=== PATIENT | female | born 1960 | race Caucasian/White ===

== ENCOUNTER 2017-01-26 19:46 | Emergency (ER) | payer OTHER ==
[2017-01-26 20:18] VITALS: BP 112/64
--- NOTE | 2017-01-26 22:07 | RAD ---
Indication: Fall with head trauma. Comparison: No relevant prior exams available on the [facility] [place] for comparison. Technique: Noncontrast CT vertex of skull through foramen magnum. Report: The sulci, ventricles, and basal cisterns are normal for age. Fierro matter white matter differentiation is preserved without evidence for edema. No intra or extra axial hemorrhage is detected. Unremarkable orbital contents. Negative for calvarial or skull base fracture. Negative for scalp hematoma. The visualized paranasal sinuses and mastoid air spaces are clear. IMPRESSION: Negative unenhanced head CT. No evidence for traumatic brain injury or acute intracranial process.
[2017-01-26] MEDS: Nicotine Inhaler* 10 MG AMP INH ONE ×2 (22:09→22:14)
--- NOTE | 2017-01-26 22:10 | RAD ---
INDICATION: Neck pain post fall. Intoxicated. COMPARISON: No relevant prior exams available on the [facility] [place] [facility] for comparison. TECHNIQUE: Multidetector CT images foramen magnum to lung apices without contrast. Multiplanar reformation. REPORT: Normal vertebral alignment accounting for exam positioning without spondylolisthesis or subluxation at any level. Negative for cervical vertebral body or posterior element fracture. Negative for paravertebral hematoma. At C5-C6 there is mild disc space narrowing and vertebral endplate osteophytosis without suggestion of acquired spinal stenosis. IMPRESSION: No evidence for traumatic cervical spine injury.
--- NOTE | 2017-01-26 22:13 | RAD ---
INDICATION: Fall while intoxicated. Head and neck pain. COMPARISON: No relevant prior exams available on the [facility] [place] for comparison. TECHNIQUE: Multidetector CT base of the skull through mandible without contrast. Multiplanar reformation. REPORT: Artifact from dental amalgam. Negative for soft tissue hematoma. Unremarkable orbital contents. The orbital and maxillary sinus margins, zygomatic arches, lamina papyracea, base of the maxilla, pterygoid plates, and nasal bones are intact. The mandible is intact. Normal temporal mandibular joint alignment. Osteophytosis and flattening of the LEFT mandibular condyle with small chronic appearing osteochondral fragment at the LEFT temporomandibular joint. Negative for paranasal sinus fluid levels. Clear visualized mastoid air spaces. IMPRESSION: Negative for maxillofacial fracture.
--- NOTE | 2017-01-26 22:48 | ED ---
Head Injury - HPI Summary HPI Summary: Pt here w/ fall and hitting face against cement while leaving a restaurant tonight. Was trying to walk and light cigarette when he lost her balance/foot caught sidewalk and she fell forward. "Busted front teeth" on sidewalk - bleeding. Has a couple of fractured teeth. Denies LOC however pt appears intoxicated. Reports she was having dinner w/ her son who witnessed fall - he is not with her at this time. She is wondering if she broke her nose. Denies headache, change in vision, neck pain, vomiting, confusion. No anticoagulants. Has a few abrasions from fall over UE's and LE's but no briseyda restriction or pain. No other injuries to report. - History Of Current Complaint Chief Complaint: EDFacialInjury Stated Complaint: FALL/ETOH Time Seen by Provider: 01/26/17 20:18 Hx Obtained From: Patient Pain Intensity: 0 - Allergies/Home Medications Allergies/Adverse Reactions: Allergies Allergy/AdvReac Type Severity Reaction Status Date / Time Codeine Allergy Unknown Verified 01/28/16 12:00 Reaction Details Meperidine [From Demerol HCl] Allergy Unknown Verified 01/28/16 12:00 Reaction Details Morphine Allergy Unknown Verified 01/28/16 12:00 Reaction Details PMH/Surg Hx/FS Hx/Imm Hx Previously Healthy: Yes Endocrine/Hematology History: Denies: Hx Anticoagulant Therapy, Hx Blood Disorders, Hx Diabetes, Hx Thyroid Disease Cardiovascular History: Reports: Hx Hypertension - NO MEDS, CURRENT BP 154/88,, Other Cardiovascular Problems/Disorders - HTN, NO MEDS Denies: Hx Congestive Heart Failure Respiratory History: Reports: Hx Chronic Bronchitis, Hx Pneumonia Denies: Hx Asthma, Hx Chronic Obstructive Pulmonary Disease (COPD) GI History: Denies: Hx Ulcer History: Denies: Hx Renal Disease Musculoskeletal History: Reports: Hx Orthopedic Injury - broke back at 12 years of age Sensory History: Reports: Hx Contacts or Glasses - GLASSES Opthamlomology History: Reports: Hx Contacts or Glasses - GLASSES Psychiatric History: Reports: Hx Depression - HAS MED TO USE NEEDED, Hx Substance Abuse - ALCOHOLIC - Cancer History Hx Chemotherapy: No Hx Radiation Therapy: No - Surgical History Surgery Procedure, Year, and Place: [place] [facility] [place] [facility]. 1993 & 1999 c-sections [facility] Hx Anesthesia Reactions: No - Immunization History Immunizations Up to Date: Yes Infectious Disease History: No Infectious Disease History: Denies: Hx Clostridium Difficile, Hx Hepatitis, Hx Human Immunodeficiency Virus (HIV), Hx of Known/Suspected MRSA, Hx Shingles, Hx Tuberculosis, Hx Known/ Suspected VRE, Hx Known/Suspected VRSA, History Other Infectious Disease, Traveled Outside the [place] in Last 30 Days - Family History Known Family History: Positive: Hypertension - Social History Alcohol Use: Daily Alcohol Amount: ALCOHOLIC: TRYS TO REFRAIN OR DRINK OCCASSIONAL GLASS OF WINE Hx Substance Use: No Substance Use Type: Reports: None Hx Tobacco Use: Yes Smoking Status (MU): Current Every Day Smoker Type: Cigarettes Amount Used/How Often: 1PPD 40 YRS Have You Smoked in the Last Year: Yes Review of Systems Eyes: Negative Negative: Photophobia, Blurred Vision ENT: Other - see HPI Negative: Chest Pain Negative: Shortness Of Breath Gastrointestinal: Negative Positive: no symptoms reported Musculoskeletal: Other - see HPI Skin: Other - see HPI Neurological: Negative Negative: Headache, Weakness, Paresthesia, Numbness Psychological: Other - frustrated All Other Systems Reviewed And Are Negative: Yes Physical Exam Triage Information Reviewed: Yes Vital Signs On Initial Exam: Initial Vitals Temp Pulse Resp BP Pulse Ox 99.3 F 104 22 112/64 97 01/26/17 20:04 01/26/17 20:04 01/26/17 20:04 01/26/17 20:04 01/26/17 20:04 Vital Signs Reviewed: Yes Appearance: Positive: No Pain Distress, Well-Nourished - pt appears intoxicated - slurred speech, poor core strength control at times Skin: Positive: Warm - blood on face and dress Eyes: Positive: Normal, EOMI, MIRA, Conjunctiva Clear. Negative: Conjunctiva Inflammed ENT: Positive: Hearing grossly normal, Nasal drainage - dried blood, TMs normal - no hmeotympanum, no step off, no racoon signs, no battlesigns. Negative: Trismus, Muffled/hoarse voice Dental: Positive: Dental Fracture @ Neck: Positive: Supple, Nontender Respiratory/Lung Sounds: Positive: Clear to Auscultation, Breath Sounds Present - chest is NTTP. Negative: Stridor, Tracheal Deviation Cardiovascular: Positive: Normal, RRR, Pulses are Symmetrical in both Upper and Lower Extremities Abdomen Description: Positive: Nontender, Soft Bowel Sounds: Positive: Present Musculoskeletal: Positive: Normal, Strength/ROM Intact Neurological: Positive: Sensory/Motor Intact - although motor delayed at times, Alert, Oriented to Person Place, Time, CN Intact II-III, Reflexes Intact Psychiatric: Positive: Other - agitated Diagnostics - Vital Signs Vital Signs Temp Pulse Resp BP Pulse Ox 01/26/17 20:34 99.3 F 104 22 112/64 97 01/26/17 20:04 99.3 F 104 22 112/64 97 - Laboratory Lab Statement: Any lab studies that have been ordered have been reviewed, and results considered in the medical decision making process. Head Injury Course/Dx Course Of Treatment: Pt here w/ fall earlier tonight - appears intoxicated. Dried blood on face and in mouth. Denies sx of pain or neuro deficits. Imaging neg, Son to belt picker pt. Her neuro functions appears to have improved some prior to d/c (appears more alert, movments are more coordinated). Narcotic pain medications were not provided as pt appears intoxicated, has noted h/o alcoholism and denies intoxication tonight. Gave supportive care instructions for injuries - she denies pain during exam and just wanted to know if her nose was fx'd (it was not). Pt agrees w plan. - Diagnoses Provider Diagnoses: Head injury, Fracture, tooth, Multiple abrasions Discharge - Discharge Plan Condition: Stable Disposition: HOME Patient Education Materials: Head Injury (ED), Acute Dental Trauma (ED) Referrals: Shamar Nunez MD [Primary Care Provider] - Additional Instructions: Rest and ice areas of pain/soreness You may take acetaminophen alternating with ibuprofen for pain - take with food Follow-up with PCP next week for recheck of injuries *if you develop headache, visual change, vomiting, syncope, return to ED You appear to have dental fracture(s). These may be addressed with your dentist. Rinse with saline oral rinses multiple times a day to help heal wounds. Keep tooth and bring with you to dentist.
== END 2017-01-26 23:45 | disposition home or self-care (01) ==
LOC: ED 19:46
DX: S09.90XA Unspecified injury of head, initial encounter (principal); S02.5XXA Fracture of tooth (traumatic), initial encounter for closed fracture; S00.91XA Abrasion of unspecified part of head, initial encounter; W19.XXXA Unspecified fall, initial encounter; Y93.9 Activity, unspecified; Y92.9 Unspecified place or not applicable; Y99.9 Unspecified external cause status; F17.210 Nicotine dependence, cigarettes, uncomplicated
CPT/HCPCS: 70450; 70486; 72125; 99282; A9270-GY

== ENCOUNTER 2017-03-10 19:11 | Inpatient (IN) | payer OTHER ==
[2017-03-10 19:58] LABS: Hematocrit 45 % (35-47); Hemoglobin 14.7 g/dl (12.0-16.0); Mean Corpuscular HGB Conc 33 g/dl (31-36); Mean Corpuscular Hemoglobin 33 pg (27-31); Mean Corpuscular Volume 101 fL (80-97); Mean Platelet Volume 8 um3 (7.4-10.4); Red Blood Count 4.41 10^6/ul (4.0-5.4); Red Cell Distribution Width 17 % (10.5-15); White Blood Count 4.5 10^3/ul (3.5-10.8)
[2017-03-10 20:13] LABS: ALT 10 U/L (7-52); AST 20 U/L (13-39); Albumin 4.6 g/dL (3.2-5.2); Alkaline Phosphatase 60 U/L (34-104); Anion Gap 7 mmol/L (2-11); BUN/Creatinine Ratio 8.8 (8-20); Blood Urea Nitrogen 5 mg/dL (6-24); CO2 Carbon Dioxide 33 mmol/L (22-32); Calcium 8.7 mg/dL (8.6-10.3); Chloride 102 mmol/L (101-111); EGFR African American 140.1 (>60); EGFR Non-African American 108.9 (>60); Globulin 2.6 g/dL (2-4); Glucose 94 mg/dL (70-100); Potassium 3.9 mmol/L (3.5-5.0); Sodium 142 mmol/L (133-145); Total Protein 7.2 g/dL (6.4-8.9)
[2017-03-10 20:38] LABS: Acetaminophen < 15 mcg/mL; Alcohol 275 mg/dL (<10); Salicylate < 2.50 mg/dL (<30)
--- NOTE | 2017-03-10 20:42 | ED ---
Madison Paulino Rebecca, scribed for Luz Marina Reno MD on 03/10/17 at 1931 . Psychiatric Complaint - HPI Summary HPI Summary: Pt is a 57 y/o F BIB police who presents to ED after her mother called police due to depression with SIs. Pt reports she told her mother that she was "finished, because I am and my kids don't live with my anymore and nobody seems to care about me" and this prompted her to call the police. Additionally notes an episode of dizziness 2 weeks ago. As a result of the dizziness she has not taken her Cephalexin in 4 days and has decreased her Trazadone dosage. Sx aggravated and alleviated by nothing. When asked, pt denies PMHx depression but she is documented to have a Hx of depression. - History Of Current Complaint Chief Complaint: EDMentalHealth Time Seen by Provider: 03/10/17 19:22 Hx Obtained From: Patient Onset/Duration: Still Present Character: Depressed Aggravating Factor(s): Nothing Alleviating Factor(s): Nothing Has Suicidal: Reports: Thoughts - Allergies/Home Medications Allergies/Adverse Reactions: Allergies Allergy/AdvReac Type Severity Reaction Status Date / Time Codeine Allergy Unknown Verified 03/10/17 19:16 Reaction Details Meperidine [From Demerol HCl] Allergy Unknown Verified 03/10/17 19:16 Reaction Details Morphine Allergy Unknown Verified 03/10/17 19:16 Reaction Details PMH/Surg Hx/FS Hx/Imm Hx Endocrine/Hematology History: Denies: Hx Anticoagulant Therapy, Hx Blood Disorders, Hx Diabetes, Hx Thyroid Disease Cardiovascular History: Reports: Hx Hypertension - NO MEDS, CURRENT BP 154/88,, Other Cardiovascular Problems/Disorders - HTN, NO MEDS Denies: Hx Congestive Heart Failure Respiratory History: Reports: Hx Chronic Bronchitis, Hx Pneumonia Denies: Hx Asthma, Hx Chronic Obstructive Pulmonary Disease (COPD) GI History: Denies: Hx Ulcer History: Denies: Hx Renal Disease Musculoskeletal History: Reports: Hx Orthopedic Injury - broke back at 12 years of age Sensory History: Reports: Hx Contacts or Glasses - GLASSES Opthamlomology History: Reports: Hx Contacts or Glasses - GLASSES Psychiatric History: Reports: Hx Depression - HAS MED TO USE NEEDED, Hx Substance Abuse - ALCOHOLIC - Cancer History Hx Chemotherapy: No Hx Radiation Therapy: No - Surgical History Surgery Procedure, Year, and Place: 2010 LEFT W[facility]ST/[facility]ARM [facility]. 2010 LEFT BREAST [facility]ST [facility]. 1993 & 1999 c[facility]sections [facility] Hx Anesthesia Reactions: No Infectious Disease History: No Infectious Disease History: Denies: Hx Clostridium Difficile, Hx Hepatitis, Hx Human Immunodeficiency Virus (HIV), Hx of Known/Suspected MRSA, Hx Shingles, Hx Tuberculosis, Hx Known/ Suspected VRE, Hx Known/Suspected VRSA, History Other Infectious Disease, Traveled Outside the US in Last 30 Days - Family History Known Family History: Positive: Hypertension - Social History Alcohol Use: Daily Alcohol Amount: ALCOHOLIC: TRYS TO REFRAIN OR DRINK OCCASSIONAL GLASS OF WINE Hx Substance Use: No Substance Use Type: Reports: None Hx Tobacco Use: Yes Smoking Status (MU): Current Every Day Smoker Type: Cigarettes Amount Used/How Often: 1PPD 40 YRS Have You Smoked in the Last Year: Yes Review of Systems Negative: Fever Neurological: Other - Episode of dizziness 2 weeks ago Positive: Other - Depression with SIs All Other Systems Reviewed And Are Negative: Yes Physical Exam - Summary Physical Exam Summary: General: Well appearing, no pain distress Skin: Warm, Skin Color Reflects Adequate Perfusion, Dry Eyes: EOMI, MIRA ENT: Pharynx normal, TMs normal Neck: Supple, nontender Respiratory: CTA, breath sounds present, no rhonchi, no wheezes, no rales Cardiovascular: RRR, no murmur, no rub, no gallop Abdomen: Soft, nontender, Non-distended, no guarding, no rebound Bowel: Present Musculoskeletal: MARISA, 1+ edema bilaterally Neuro: Sensory/motor intact, A&Ox3, CN intact 2-12 Psych: Slightly tangential speech Triage Information Reviewed: Yes Vital Signs On Initial Exam: Initial Vitals Temp 98 F 03/10/17 19:16 Vital Signs Reviewed: Yes Diagnostics - Vital Signs Vital Signs Temp Pulse Resp BP Pulse Ox 03/10/17 19:17 98 F 111 16 141/102 90 03/10/17 19:16 98 F - Laboratory Lab Results: Lab Results 03/10/17 03/10/17 Range/Units 19:49 19:49 WBC 4.5 (3.5-10.8) 10^3/ul RBC 4.41 (4.0-5.4) 10^6/ul Hgb 14.7 (12.0-16.0) g/dl Hct 45 (35-47) % MCV 101 H (80-97) fL MCH 33 H (27-31) pg MCHC 33 (31-36) g/dl RDW 17 H (10.5-15) % Plt Count 182 (150-450) 10^3/ul MPV 8 (7.4-10.4) um3 Neut % (Auto) 43.7 (38-83) % Lymph % (Auto) 44.6 (25-47) % [place] % (Auto) 9.4 H (1-9) % Eos % (Auto) 1.6 (0-6) % Baso % (Auto) 0.7 (0-2) % Absolute Neuts (auto) 2.0 (1.5-7.7) 10^3/ul Absolute Lymphs (auto) 2.0 (1.0-4.8) 10^3/ul Absolute Monos (auto) 0.4 (0-0.8) 10^3/ul Absolute Eos (auto) 0.1 (0-0.6) 10^3/ul Absolute Basos (auto) 0 (0-0.2) 10^3/ul Absolute Nucleated RBC 0.02 10^3/ul Nucleated RBC % 0.4 Sodium 142 (133-145) mmol/L Potassium 3.9 (3.5-5.0) mmol/L Chloride 102 (101-111) mmol/L Carbon Dioxide 33 H (22-32) mmol/L Anion Gap 7 (2-11) mmol/L BUN 5 L (6-24) mg/dL Creatinine 0.57 (0.51-0.95) mg/dL Est GFR ( Amer) 140.1 (>60) Est GFR (Non-Af Amer) 108.9 (>60) BUN/Creatinine Ratio 8.8 (8-20) Glucose 94 (70-100) mg/dL Calcium 8.7 (8.6-10.3) mg/dL Total Bilirubin 0.60 (0.2-1.0) mg/dL AST 20 (13-39) U/L ALT 10 (7-52) U/L Alkaline Phosphatase 60 (34-104) U/L Total Protein 7.2 (6.4-8.9) g/dL Albumin 4.6 (3.2-5.2) g/dL Globulin 2.6 (2-4) g/dL Albumin/Globulin Ratio 1.8 (1-3) TSH Pending Salicylates < 2.50 (<30) mg/dL Acetaminophen < 15 mcg/mL Serum Alcohol 275 H (<10) mg/dL Result Diagrams: 03/10/17 19:49 03/10/17 19:49 Lab Statement: Any lab studies that have been ordered have been reviewed, and results considered in the medical decision making process. Course/Dx - Course Course Of Treatment: 57 yo female whose mother called the police according to patient because she may have made a suicidal statement with alcohol in blood stream. pt will be cleared for evaluation at 330 am, pt will be signed out to Dr. Ruiz. - Differential Dx/Clinical Impression Provider Diagnosis: Alcohol intoxication Discharge - Discharge Plan Condition: Stable Disposition: OTHER Discharge Disposition Comment: to be determined The documentation as recorded by the Madison john Rebecca accurately reflects the service I personally performed and the decisions made by me, Luz Marina Reno MD.
[2017-03-10 20:46] LABS: TSH (Thyroid Stimulating Horm) 1.09 mcIU/mL (0.34-5.60)
[2017-03-10] MEDS ORDERED: Haloperidol INJ IV/IM* 5 MG/ML AMP IM ONE (20:56)
[2017-03-10] MEDS ORDERED: LORazepam INJ* 2 MG/ML 1 ML VIAL IM ONE (20:56)
[2017-03-11 02:39] LABS: Urine Bacteria Absent (Absent); Urine Bilirubin Negative (Negative); Urine Glucose Negative (Negative); Urine Nitrite Negative (Negative)
[2017-03-11 02:43] LABS: Benzodiazepine Urine Screen None Detected (None Detect)
[2017-03-11] MEDS ORDERED: Nicotine GUM* 2 MG PO PRN (07:18)
[2017-03-11] MEDS ORDERED: Acetaminophen TAB* 325 MG PO PRN ×2 (07:18→13:53)
[2017-03-11] MEDS ORDERED: Mouth Piece, Nicotine* 1 EACH CARTRIDGE INH SCH (07:18)
[2017-03-11] MEDS ORDERED: Al Hydrox/Mg Hydrox/Simet LIQ* 30 ML UDC PO PRN (07:18)
[2017-03-11] MEDS ORDERED: hydrOXYzine HCL TAB* 25 MG PO PRN (07:19)
[2017-03-11] MEDS ORDERED: Famotidine TAB* 20 MG PO SCH (09:00)
[2017-03-11] MEDS ORDERED: cloNIDine TAB* 0.1 MG PO SCH (09:00)
[2017-03-11] MEDS ORDERED: Sertraline* 100 MG TAB PO SCH (09:00)
[2017-03-11] MEDS ORDERED: Meloxicam(NF) 15 MG TAB PO SCH (09:00)
[2017-03-11] MEDS ORDERED: predniSONE TAB* 20 MG PO SCH (09:00)
[2017-03-11] MEDS ORDERED: BuPROPion XL* 150 MG TAB.XL PO SCH (09:00)
[2017-03-11] MEDS: Citalopram TAB* 40 MG PO SCH (09:36)
[2017-03-11] MEDS: Vitamin THERAPEUTIC TAB PO SCH (09:36)
--- NOTE | 2017-03-11 13:48 | HP ---
H&P (Free Text) History and Physical: HPI: ---- Patient is a 57yo female with PPHx significant for MDD, R, S, Unspecified Anxiety d/o, and Alcohol use d/o, severe who presents [place] [facility] [place] after patient's mother called them due to patient expressing worsening depressive symptoms and SI. Patient endorses the statements, but reports no motivation or intent to kill herself. She describes her mother as worrisome. Per review of record, patient admitted to [facility] in [place]2013 after expressing SI to mother. Patient on that admission denied intent. Patient reports same stressors and triggers from the 2013 admission. She reports her primary trigger is lonliness. Patient has no hx of suicide attempt. Mother reports patient has hx of setting up the car in the garage to attempt suicide by CO poisoning. Patient reports she has not seen recently, but is on antidepressant and antianxiety meds Rx'd by her PCP. Patient reports recent episodes of light headedness prompted her to self taper off Ativan. Patient identifies the start of her taper from 1mg QID to 1mg BID PRN as the start of her drop in mood and fleeting SI w/o plannning. Patient denies SI/HI and AH/VH currently. She is tremulous on admission. Patient reports she does not take more of her Ativan Rx than is Rx'd. Patient reports daily use of alcohol, 2-3 mixed drinks usually vodka. She denies other symptoms of alcohol or benzo w/d. Patient denies hx of w/d seizure or DTs. Patient amenable to start of [place] monitoring for likely Benzo w/d symptoms. Past Psych Hx: Inpt - Patient has 1 prior admission, here at [facility] Outpt - None currently, seen by eLlo Chambers after her divorce in 2002 Psychotropic med hx - currently on Celexa and Trazodone Suicide attempt Hx / SIB Hx: Patient denies hx of suicide attempts and denies hx of SIB. Trauma Hx: Patient denies hx of emotional, physical, or sexual abuse/ sexual assault. Substance Hx: Patient reports daily use of alcohol, 2-3 mixed drinks usually vodka. Patient denies hx of w/d seizure or DTs. Patient reports remote hx of use of illicit substances. Medical Hx: HTN Sciatica Allergies: --------- Codeine Meperidine Morphine Social Hx: --------- -Born and raised in [place], [place] -Raised by mom and dad till their divorce when pt was 11yo -Patient has a BA in [employer] - x 1, in 2002 -2 children -Currently unemployed -Lives alone -Patient has a firearm in her closet -Patient reports having a stockpile of old Rx tabs Home Medications: Home Medications Medication Instructions Recorded Confirmed Type Citalopram TAB* [Celexa TAB*] 20 - 40 mg PO DAILY 11/17/15 03/11/17 History LORazepam TAB(*) [Ativan 1 MG TAB 1 mg PO Q6H PRN 11/17/15 03/11/17 History (*)] traZODone TAB* [Desyrel TAB*] 100 - 150 mg PO BEDTIME 11/17/15 03/11/17 History PHYSICAL EXAM: Patient declines PE. Please see H&P documented in the [facility]: Psychiatric Complaint note dated 03/10/17. LABS: ----- Laboratory Tests 03/10/17 03/10/17 03/11/17 19:49 19:49 02:20 WBC 4.5 RBC 4.41 Hgb 14.7 Hct 45 MCV 101 H MCH 33 H MCHC 33 RDW 17 H Plt Count 182 MPV 8 Neut % (Auto) 43.7 Lymph % (Auto) 44.6 [place] % (Auto) 9.4 H Eos % (Auto) 1.6 Baso % (Auto) 0.7 Absolute Neuts (auto) 2.0 Absolute Lymphs (auto) 2.0 Absolute Monos (auto) 0.4 Absolute Eos (auto) 0.1 Absolute Basos (auto) 0 Absolute Nucleated RBC 0.02 Nucleated RBC % 0.4 Sodium 142 Potassium 3.9 Chloride 102 Carbon Dioxide 33 H Anion Gap 7 BUN 5 L Creatinine 0.57 Est GFR ( Amer) 140.1 Est GFR (Non-Af Amer) 108.9 BUN/Creatinine Ratio 8.8 Glucose 94 Calcium 8.7 Total Bilirubin 0.60 AST 20 ALT 10 Alkaline Phosphatase 60 Total Protein 7.2 Albumin 4.6 Globulin 2.6 Albumin/Globulin Ratio 1.8 TSH 1.09 Urine Color Yellow Urine Appearance Clear Urine pH 5.0 Ur Specific [place] 1.011 Urine Protein Negative Urine Ketones Negative Urine Blood Negative Urine Nitrate Negative Urine Bilirubin Negative Urine Urobilinogen Negative Ur Leukocyte Esterase Trace H Urine WBC (Auto) Trace(0-5/hpf) Urine RBC (Auto) 1+(3-5/hpf) H Urine Bacteria Absent Urine Glucose Negative Salicylates < 2.50 Urine Opiates Screen Acetaminophen < 15 Ur Barbiturates Screen Ur Phencyclidine Scrn Ur Amphetamines Screen U Benzodiazepines Scrn Urine Cocaine Screen U Cannabinoids Screen Serum Alcohol 275 H 03/11/17 02:20 WBC RBC Hgb Hct MCV MCH MCHC RDW Plt Count MPV Neut % (Auto) Lymph % (Auto) [place] % (Auto) Eos % (Auto) Baso % (Auto) Absolute Neuts (auto) Absolute Lymphs (auto) Absolute Monos (auto) Absolute Eos (auto) Absolute Basos (auto) Absolute Nucleated RBC Nucleated RBC % Sodium Potassium Chloride Carbon Dioxide Anion Gap BUN Creatinine Est GFR ( Amer) Est GFR (Non-Af Amer) BUN/Creatinine Ratio Glucose Calcium Total Bilirubin AST ALT Alkaline Phosphatase Total Protein Albumin Globulin Albumin/Globulin Ratio TSH Urine Color Urine Appearance Urine pH Ur Specific [place] Urine Protein Urine Ketones Urine Blood Urine Nitrate Urine Bilirubin Urine Urobilinogen Ur Leukocyte Esterase Urine WBC (Auto) Urine RBC (Auto) Urine Bacteria Urine Glucose Salicylates Urine Opiates Screen None detected Acetaminophen Ur Barbiturates Screen None detected Ur Phencyclidine Scrn None detected Ur Amphetamines Screen None detected U Benzodiazepines Scrn None detected Urine Cocaine Screen None detected U Cannabinoids Screen None detected Serum Alcohol MSE: ----- Appearance - moderate build, fair hygeine, in NAD Behavior - mildly tremulous, cooperative Speech - RRR, prosody wnl Eye Contact - good Mood - "anxious" Affect - anxious TP - linear and GD TC -frustrated with admission. She denies motivation or intent to kill herself Perception - no signs of psychosis noted or reported Orientation - A&Ox3 Cognition - intact Insight - poor to fair Judgement - poor to fair SI / HI - SI present on admission, currently denies both ASSESSMENT: 1. MDD, R, S 2. Unspecified Anxiety d/o on Benzo mx 3. Alcohol use d/o, severe PLAN: ------ 1. Continue admission to [facility] for safety and symptom mx. 2. Continue home dose psychotropic regimen. 3. Initiate WAM for alcohol/Benzo w/d symptoms. 4. Continue compiling collateral information from family, PCP, and outpt providers. 5. Patient to participate in milieu activities and groups.
[2017-03-11] MEDS ORDERED: LORazepam TAB(*) 1 MG PO ONE (13:55)
[2017-03-11] MEDS ORDERED: LORazepam TAB(*) 1 MG PO SCH (14:00)
[2017-03-11] MEDS ORDERED: traZODone TAB* 100 MG PO SCH (21:00)
[2017-03-11] MEDS: traZODone TAB* 100 MG PO SCH (22:01)
[2017-03-12] MEDS: Nicotine Inhaler* 10 MG AMP INH PRN (07:56)
[2017-03-12] MEDS: Multivitamins/Minerals TAB PO SCH (07:56)
[2017-03-12] MEDS: Thiamine TAB* 100 MG TAB PO SCH (07:56)
[2017-03-12] MEDS: Citalopram TAB* 40 MG PO SCH (07:56)
[2017-03-12] MEDS: LORazepam TAB(*) 1 MG PO PRN ×2 (07:56→19:59)
[2017-03-12] MEDS: Folic Acid TAB* 1 MG PO SCH (07:57)
[2017-03-12] MEDS: Vitamin THERAPEUTIC TAB PO SCH (07:57)
[2017-03-12] MEDS: traZODone TAB* 100 MG PO SCH (19:58)
--- NOTE | 2017-03-13 07:04 | PN ---
Subjective - Subjective Service Type: 91734 Hosp care 15 min low complexity - NOTE for 03/13/17 Encounter. Subjective: Patient noted to be in bed since admission. She is up for meals, but has not participated in groups. Patient again denies motivation or intent to kill herself. She reports expressing fleeting thoughts to her mom. Patient agrees her taper off Ativan likely led to her mood lability. Patient reports no SI/HI and denies AH/VH. She reports her mood and anxiety levels are baseline now back on home dose Ativan. Objective - Appearance Appearance: Thin Framed Dysmorphic Features: No Hygiene: Normal Grooming: Fairly Well Kept - Behavior Psychomotor Activities: Normal Exhibits Abnormal Movement: No - Attitude and Relatedness Attitude and Relatedness: Cooperative Eye Contact: Fair - Speech Quality: Unpressured Latencies: Normal Quantity: Appropriate - Mood Patient's Decription of Mood: "Fine" - Affect Observed Affect: Fair Affect Consistent with: Euthymia - Thought Process Patient's Thought Process: Coherent Thought Content: No Passive Wish, No Suicidal Planning, No Homicidal Ideation, No Paranoid Ideation - Sensorium Experiencing Hallucinations: No, Sensorium is Clear Type of Hallucinations: Visual: No, Auditory: No, Command: No - Level of Consciousness Level of Consciousness: Alert Orientation: Yes Intact, Yes Orientated to Time, Yes Orientated to Place, Yes Orientated to Person - Impulse Control Impulse Control: Intact - Insight and Judgement Insight and Judgement: Fair - Group Participation Particating in Group Activities: No - Medication Management Medication Management Adherence: Yes Assessment - Assessment Merits Inpatient Hospitalization: For Immediate Safety, For Stabilization Inpatient DSM-IV Dx: 1. MDD, R, S. 2. Unspecified Anxiety d/o Plan - Plan Treatment Plan: Name: DENITA BROWN Birthdate: 1960 [id number] 1. Continue [facility] admission for safety and symptom mx. 2. Continue home psychotropic regimen. 3. Collateral obtained form mother Sarah#[phone] 4. Patient to participate in milieu activities and groups. Continued Medication Management: Continue Outpt Medication Medications: Current Medications Acetaminophen (Tylenol Tab*) 650 mg PO Q4H PRN PRN Reason: PAIN or TEMP > 101 F Al Hydrox/Mg Hydrox/Simethicone (Maalox Plus*) 30 ml PO Q4H PRN PRN Reason: INDIGESTION Citalopram Hydrobromide (Celexa Tab*) 40 mg PO DAILY [facility] Last Admin: 03/12/17 07:56 Dose: 40 mg Device (Nicotine Mouth Piece*) 1 each INH .CARTRIDGE [facility] Last Admin: 03/12/17 07:56 Dose: 1 each Folic Acid (Folvite Tab*) 1 mg PO DAILY [facility] Last Admin: 03/12/17 07:57 Dose: 1 mg Lorazepam (Ativan Tab(*)) 0 - 6 mg PO .PER [facility] PROTOCOL [facility] PRN Reason: Protocol Lorazepam (Ativan Tab(*)) 1 mg PO Q6H PRN PRN Reason: ANXIETY Last Admin: 03/12/17 19:59 Dose: 1 mg Multivitamins (Theragran Tab*) 1 tab PO DAILY [facility] Last Admin: 03/12/17 07:57 Dose: Not Given Multivitamins/Minerals (Theragran/Minerals Tab*) 1 tab PO DAILY [facility] Last Admin: 03/12/17 07:56 Dose: 1 tab Nicotine (Nicotine Inhaler*) 10 mg INH Q2H PRN PRN Reason: CRAVING Last Admin: 03/12/17 07:56 Dose: 10 mg Nicotine Polacrilex (Nicotine Gum*) 2 mg PO Q2H PRN PRN Reason: CRAVING Thiamine HCl (Vitamin B-1 Tab*) 100 mg PO DAILY [facility] Last Admin: 03/12/17 07:56 Dose: 100 mg Trazodone HCl (Desyrel Tab*) 100 mg PO BEDTIME [facility] Last Admin: 03/12/17 19:58 Dose: 100 mg - Discharge Plan Discharge Plan: Outpatient Follow Up
[2017-03-13] MEDS: Citalopram TAB* 40 MG PO SCH (07:38)
[2017-03-13] MEDS: Multivitamins/Minerals TAB PO SCH (07:38)
[2017-03-13] MEDS: Folic Acid TAB* 1 MG PO SCH (07:38)
[2017-03-13] MEDS: Vitamin THERAPEUTIC TAB PO SCH (07:38)
[2017-03-13] MEDS: LORazepam TAB(*) 1 MG PO PRN (07:38)
[2017-03-13] MEDS: Thiamine TAB* 100 MG TAB PO SCH (07:39)
[2017-03-13] MEDS: Nicotine Inhaler* 10 MG AMP INH PRN ×2 (09:02→13:00)
[2017-03-13 10:54] VITALS: BP 153/85
[2017-03-13] MEDS ORDERED: LORazepam TAB(*) 1 MG PO ONE (11:00)
--- NOTE | 2017-03-13 13:19 | DS ---
Subjective - Subjective Service Types: 98255 Hosp DC Day Mgmt simple under 30 min Subjective: Patient again noted to be isolated in her room, but noted up reading mostly. Since her admission Sunday, patient has not been participating in groups and [employer] activities. Patient reports worsening anxiety in groups of people she doesnt know. Patient is med compliance and denies me s/e. She continues to display a mild tremor which was not present prior to this hospitalization. Sleep and appetite are wnl. Patient reports feeling ready for discharge. Discharge plan was discussed. Patient acknowledges understanding and is amenable. Patient will have an ADC intake appt with her new psychiatrist this week. Patient reports awareness of her community and family supports. She reports understanding that she can call 911, the hotline, or present to her local ED if SI recurs.v Patient denies SI/HI and AH/VH. Objective - Appearance Appearance: Thin Framed Dysmorphic Features: No Hygiene: Normal Grooming: Fairly Well Kept - Behavior Psychomotor Activities: Normal Exhibits Abnormal Movement: Yes - Attitude and Relatedness Attitude and Relatedness: Cooperative Eye Contact: Good - Speech Quality: Unpressured Latencies: Normal Quantity: Appropriate - Mood Patient's Decription of Mood: "Fine" - Affect Observed Affect: Fair Affect Consistent with: Euthymia - Thought Process Patient's Thought Process: Coherent Thought Content: No Passive Wish, No Suicidal Planning, No Homicidal Ideation, No Paranoid Ideation - Sensorium Experiencing Hallucinations: No, Sensorium is Clear Type of Hallucinations: Visual: No, Auditory: No, Command: No - Level of Consciousness Level of Consciousness: Alert Orientation: No Intact, No Orientated to Time, No Orientated to Place, No Orientated to Person - Impulse Control Impulse Control: Intact - Insight and Judgement Insight and Judgement: Fair - Group Participation Particating in Group Activities: No - Medication Management Medication Management Adherence: Yes Treatment Course & Assessment Clinical Course & Impression: Hospital course: Patient is a 57yo female with PPHx significant for MDD, R, S, Unspecified Anxiety d/o, and Alcohol use d/o, severe who presents to [facility] ED by police after patient's mother called them due to patient expressing worsening depressive symptoms and SI. Patient endorses the statements, but reports no motivation or intent to kill herself. She describes her mother as worrisome. Per review of record, patient admitted to [facility] in 04/2013 after expressing SI to mother. Patient on that admission denied intent. Patient reports same stressors and triggers from the 2013 admission. She reports her primary trigger is lonliness. Patient has no hx of suicide attempt. Mother reports patient has hx of setting up the car in the garage to attempt suicide by CO poisoning. Patient reports she has not seen MH recently, but is on antidepressant and antianxiety meds Rx'd by her PCP. Patient reports recent episodes of light headedness prompted her to self taper off Ativan. Patient identifies the start of her taper from 1mg QID to 1mg BID PRN as the start of her drop in mood and fleeting SI w/o plannning. Patient denies SI/HI and AH/VH currently. She is tremulous on admission. Patient reports she does not take more of her Ativan Rx than is Rx'd. Patient reports daily use of alcohol, 2-3 mixed drinks usually vodka. She denies other symptoms of alcohol or benzo w/d. Patient denies hx of w/d seizure or DTs. On admission day 1, patient re-started on home meds. WAM monitoring for likely Benzo w/d symptoms. Patient was positive only for mild tremor, which patient reported was new. Patient noted to isolate to her room and sleep. On admission day 2, Patient noted to be mostly in bed reading. She is up for meals, but has not participated in groups. Patient again denies motivation or intent to kill herself. She reports expressing fleeting thoughts to her mom. Patient agrees her taper off Ativan likely led to her mood lability. Patient reports no SI/HI and denies AH/VH. She reports her mood and anxiety levels are baseline now back on home dose Ativan. Patient and this provider discussed the mood lability, agitation, and physical symptoms associated with benzo withdrawal. Patient educated that benzos must be tapered slowly under the supervision of a medical provider. She acknowledged understanding. On day of discharge, patient is A&Ox3 linear and GD in TP and future oriented in TC. Patient reports desire to talk with her son and daughter in attmepts to repair their relationship. She reports desire to return to her home and animals. Her current risk potential has improved and benefit from an ongoing admission is minimal as she will not take part in groups. Patient is psychiatrically stable. She has reported no SI/HI since admission. Patient requests discharge. Patient understands her followup appts scheduled, including ADC intake. She is amenable to discharge plan. . Clear for Discharge: Adequate Clinical Respons, Acceptable Safety Profile, Low Utility of In Care Inpatient DSM-IV Dx: 1. MDD, R, S. 2. Benzo w/d. 3. r/o Benzo use d/o. 4. Unspecified Anxiety d/o. 5. Alcohol use d/o Discharge Planning - Discharge Planning Discharge Plan: Outpatient Follow Up Out[facility]: [facility] Recommendations for Continuing Care: Psychotherapy, Substance Abuse Counseling Medications: Current Medications Acetaminophen (Tylenol Tab*) 650 mg PO Q4H PRN PRN Reason: PAIN or TEMP > 101 F Al Hydrox/Mg Hydrox/Simethicone (Maalox Plus*) 30 ml PO Q4H PRN PRN Reason: INDIGESTION Citalopram Hydrobromide (Celexa Tab*) 40 mg PO DAILY [facility] Last Admin: 03/13/17 07:38 Dose: 40 mg Device (Nicotine Mouth Piece*) 1 each INH .CARTRIDGE [facility] Last Admin: 03/12/17 07:56 Dose: 1 each Folic Acid (Folvite Tab*) 1 mg PO DAILY [facility] Last Admin: 03/13/17 07:38 Dose: 1 mg Lorazepam (Ativan Tab(*)) 1 mg PO Q6H PRN PRN Reason: ANXIETY Last Admin: 03/13/17 07:38 Dose: 1 mg Multivitamins (Theragran Tab*) 1 tab PO DAILY [facility] Last Admin: 03/13/17 07:38 Dose: 1 tab Multivitamins/Minerals (Theragran/Minerals Tab*) 1 tab PO DAILY [facility] Last Admin: 03/13/17 07:38 Dose: 1 tab Nicotine (Nicotine Inhaler*) 10 mg INH Q2H PRN PRN Reason: CRAVING Last Admin: 03/13/17 13:00 Dose: 10 mg Nicotine Polacrilex (Nicotine Gum*) 2 mg PO Q2H PRN PRN Reason: CRAVING Thiamine HCl (Vitamin B-1 Tab*) 100 mg PO DAILY [facility] Last Admin: 03/13/17 07:39 Dose: 100 mg Trazodone HCl (Desyrel Tab*) 100 mg PO BEDTIME [facility] Last Admin: 03/12/17 19:58 Dose: 100 mg Discharge Planning: Prescriptions provided for discharge [x] Yes [] No Follow up care details as per social work arrangements. Patient response to discharge plan: [] eager for discharge [x] agreeable with discharge plan [] ambivalent about discharge [] disagrees with discharge today
== END 2017-03-13 14:58 | disposition home or self-care (01) | DRG 751 ==
LOC: ED 19:11 → BSU 03-11 05:00
PROVIDERS: ADMIT Psychiatry & Neurology Psychiatry; ATTEND Psychiatry & Neurology Psychiatry
DX: F33.2 Major depressive disorder, recurrent severe without psychotic features (principal); R45.851 Suicidal ideations; I10 Essential (primary) hypertension; F19.939 Other psychoactive substance use, unspecified with withdrawal, unspecified; F17.210 Nicotine dependence, cigarettes, uncomplicated; J42 Unspecified chronic bronchitis; F41.9 Anxiety disorder, unspecified; M54.30 Sciatica, unspecified side; F10.20 Alcohol dependence, uncomplicated; Y90.8 Blood alcohol level of 240 mg/100 ml or more; R25.1 Tremor, unspecified; Z88.6 Allergy status to analgesic agent; Z88.5 Allergy status to narcotic agent; Z82.49 Family history of ischemic heart disease and other diseases of the circulatory system; Z56.0 Unemployment, unspecified
CPT/HCPCS: 36415; 80053; 80307; 80320; 80329; 81003; 81015; 84443; 85025; 87086; 99222; 99231; 99238; A9270-GY; G0480; J1630; J2060

== ENCOUNTER 2023-09-18 09:17 | Inpatient (IN) ==
[2023-09-18 10:18] LABS: PCO2 Arterial 39 mmHg (35-45); PO2 Arterial 87 mmHg (80-100)
[2023-09-18] MEDS: Albuterol/Ipratropium NEB.SOL (2.5/0.5 MG) 3 ML NEB.SOLN INH ONE (10:28)
[2023-09-18 10:52] LABS: ABS Lymphocytes 0.7 10^3/uL (1.0-4.8); ABS Monocytes 0.8 10^3/uL (0.0-0.9); ABS Neutrophils 8.1 10^3/uL (1.5-7.6); ABS Nucleated RBC 0.01 10^3/ul; Eosinophil % 0.2 %; Hemoglobin 11.2 g/dL (11.5-14.3); Lymphocyte % 7.7 %; Mean Corpuscular Hemoglobin 40.1 pg (27-33); Mean Corpuscular Hgb Conc 35.1 g/dL (31-36); Mean Corpuscular Volume 114.4 fL (80-97); Mean Platelet Volume 9.1 fL (7.5-11.2); Nucleated Red Blood Cells % 0.1 %/100WBC (0.0-0.8); Platelet Count 136 10^3/uL (150-450); Red Cell Distribution Width 16.6 % (12-17); White Blood Count 9.6 10^3/uL (3.8-11.8)
[2023-09-18 10:55] LABS: Activated Partial Thrombo Time 32.2 seconds (26.0-38.0)
[2023-09-18 11:04] LABS: High Sens Troponin Baseline 62 pg/mL (<15)
[2023-09-18 11:36] LABS: ALT 25 U/L (7-52); Acetaminophen < 15 mcg/mL; Albumin 2.6 g/dL (3.2-5.2); Albumin/Globulin Ratio 0.8 (1-3); Alcohol, S < 13 mg/dL (<13); Alkaline Phosphatase 119 U/L (35-149); Anion Gap 14 mmol/L (2-16); Blood Urea Nitrogen 26 mg/dL (6-24); C Reactive Protein 75.69 mg/L (<8.01); CO2 Carbon Dioxide 24 mmol/L (22-32); Chloride 95 mmol/L (101-111); Creatine Kinase 179 U/L (10-223); Creatinine, Serum 0.69 mg/dL (0.51-0.95); Globulin 3.4 g/dL (2-4); Glucose 99 mg/dL (70-100); Salicylate < 2.50 mg/dL (<30); Sodium 133 mmol/L (135-145); Total Bilirubin 5.9 mg/dL (0.2-1.0); eGFR CKD-EPI 96.9 (>60)
[2023-09-18 11:38] LABS: TSH Ultra Thyroid Stim Horm 0.98 mcIU/mL (0.34-5.60)
[2023-09-18 12:10] LABS: High Sensitivity Troponin 1 Hr 62 pg/mL (<15)
[2023-09-18 12:43] LABS: Potassium 4.6 mmol/L (3.5-5.0)
[2023-09-18] MEDS: Iohexol 300 (CONTRAST) 10 ML SDV IV ONE (14:13)
[2023-09-18] MEDS ORDERED: Thiamine 100 MG/ML 2 ml VIAL (200 mg) IV ONE (15:40)
[2023-09-18] MEDS ORDERED: Lorazepam PYXIS KEY PRN (16:33)
[2023-09-18] MEDS ORDERED: LORazepam 2 mg VIAL 1 ml IV PUSH SCH (17:00)
[2023-09-18] MEDS: cefTRIAXone 2 gm/50 mL D5W 2 GM/50 ML BAG IV SCH (17:11)
[2023-09-18] MEDS: Thiamine IV 500 MG in NS 0.9% 250 ML IV ONE (17:12)
[2023-09-18] MEDS: Albumin Human 25% 25 GM/100 ML BTL IV SCH (18:15)
[2023-09-18] MEDS: Lactulose 30 ml UDC PO SCH (18:19)
[2023-09-18] MEDS: Thiamine 100 MG/ML 2 ml VIAL 100 MG, Folic Acid IV 1 MG, Multiple Vitamin IV ADULT 10 M... IV ONE (18:28)
[2023-09-18 18:30] LABS: Folate 2.77 ng/mL (5.90-24.80)
[2023-09-18 18:31] LABS: Vitamin B12 844 pg/mL (180-914)
[2023-09-18 18:33] LABS: Urine Benzodiazepine Screen None Detected (None Detect); Urine Cannabinoids Screen None Detected (None Detect); Urine Opiates Screen None Detected (None Detect)
[2023-09-18 18:34] LABS: Urine Appearance Clear; Urine Bilirubin 1+ (Negative); Urine Blood Negative (Negative); Urine Color Dark-Yellow; Urine Glucose Negative (Negative); Urine Ketones 1+ (Negative); Urine Nitrite Negative (Negative); Urine Protein Trace (Negative); Urine Specific Gravity >1.050 (1.002-1.030); Urine Urobilinogen 3+ (Negative)
[2023-09-18] MEDS: Enoxaparin 40 MG/0.4 ML SYR SUBCUT SCH (20:54)
[2023-09-19 05:20] LABS: ALT 17 U/L (7-52); Albumin 2.6 g/dL (3.2-5.2); Albumin/Globulin Ratio 1.1 (1-3); Alkaline Phosphatase 78 U/L (35-149); Blood Urea Nitrogen 23 mg/dL (6-24); CO2 Carbon Dioxide 22 mmol/L (22-32); Calcium 7.6 mg/dL (8.6-10.3); Chloride 103 mmol/L (101-111); Creatinine, Serum 0.55 mg/dL (0.51-0.95); Globulin 2.3 g/dL (2-4); Glucose 92 mg/dL (70-100); Sodium 132 mmol/L (135-145); Total Bilirubin 4.2 mg/dL (0.2-1.0); Total Protein 4.9 g/dL (6.4-8.9); eGFR CKD-EPI 102.3 (>60)
[2023-09-19 05:21] LABS: Anion Gap 7 mmol/L (2-16)
[2023-09-19 05:40] LABS: ABS Eosinophils 0.1 10^3/uL (0.0-0.5); ABS Lymphocytes 0.9 10^3/uL (1.0-4.8); ABS Monocytes 0.7 10^3/uL (0.0-0.9); ABS Neutrophils 5.7 10^3/uL (1.5-7.6); ABS Nucleated RBC 0.02 10^3/ul; Anisocytosis 1+; Hematocrit 28.6 % (35-45); Lymphocyte % 11.9 %; Macrocytosis 2+; Mean Corpuscular Hemoglobin 40.4 pg (27-33); Mean Corpuscular Hgb Conc 34.9 g/dL (31-36); Mean Corpuscular Volume 115.7 fL (80-97); Mean Platelet Volume 9.5 fL (7.5-11.2); Nucleated Red Blood Cells % 0.2 %/100WBC (0.0-0.8); Platelet Count 100 10^3/uL (150-450); Red Blood Count 2.47 10^6/uL (3.63-4.92); White Blood Count 7.4 10^3/uL (3.8-11.8)
[2023-09-19 06:52] LABS: Magnesium 1.2 mg/dL (1.9-2.7); Phosphorus 3.4 mg/dL (2.5-5.0)
[2023-09-19] MEDS: Magnesium Sulf 4 GM/100 ML IV 4,000 MG/100 ML BAG IVPB ONE (08:28)
[2023-09-19] MEDS: Multivitamins/Minerals TAB PO SCH (10:05)
[2023-09-19] MEDS ORDERED: Amoxicillin/Clavul 875/125 TAB (Augmentin 875 tab) PO SCH (12:00)
[2023-09-19] MEDS: Sulfamethox/Trimethoprim DS TAB 800/160 mg PO SCH (13:22)
[2023-09-19] MEDS: cefTRIAXone 2 gm/50 mL D5W 2 GM/50 ML BAG IV SCH (17:15)
[2023-09-20 07:02] LABS: Calcium 8.2 mg/dL (8.6-10.3); Creatinine, Serum 0.49 mg/dL (0.51-0.95); Magnesium 1.5 mg/dL (1.9-2.7); Potassium 3.6 mmol/L (3.5-5.0); eGFR CKD-EPI 105.2 (>60)
[2023-09-20 07:07] LABS: Hematocrit 28.4 % (35-45); Mean Corpuscular Hemoglobin 40.4 pg (27-33); Mean Corpuscular Hgb Conc 35.4 g/dL (31-36); Mean Corpuscular Volume 114.3 fL (80-97); Red Blood Count 2.48 10^6/uL (3.63-4.92); Red Cell Distribution Width 16.6 % (12-17); White Blood Count 6.6 10^3/uL (3.8-11.8)
[2023-09-20 07:29] LABS: ABS Eosinophils 0.1 10^3/uL (0.0-0.5); ABS Lymphocytes 0.8 10^3/uL (1.0-4.8); ABS Monocytes 0.6 10^3/uL (0.0-0.9); ABS Neutrophils 5.1 10^3/uL (1.5-7.6); ABS Nucleated RBC 0.01 10^3/ul; Eosinophil % 1.4 %; Lymphocyte % 11.4 %; Mean Platelet Volume 8.5 fL (7.5-11.2); Nucleated Red Blood Cells % 0.1 %/100WBC (0.0-0.8); Platelet Count 78 10^3/uL (150-450)
[2023-09-20] MEDS: Magnesium Sulf 4 GM/100 ML IV 4,000 MG/100 ML BAG IVPB ONE (11:24)
[2023-09-21 09:13] LABS: ABS Eosinophils 0.1 10^3/uL (0.0-0.5); ABS Lymphocytes 0.6 10^3/uL (1.0-4.8); ABS Monocytes 0.7 10^3/uL (0.0-0.9); ABS Nucleated RBC 0.01 10^3/ul; Eosinophil % 1.3 %; Hematocrit 30.7 % (35-45); Hemoglobin 10.6 g/dL (11.5-14.3); Lymphocyte % 8.8 %; Mean Corpuscular Hemoglobin 39.6 pg (27-33); Mean Corpuscular Hgb Conc 34.5 g/dL (31-36); Mean Corpuscular Volume 114.9 fL (80-97); Mean Platelet Volume 8.5 fL (7.5-11.2); Nucleated Red Blood Cells % 0.1 %/100WBC (0.0-0.8); Platelet Count 91 10^3/uL (150-450); Red Blood Count 2.67 10^6/uL (3.63-4.92); Red Cell Distribution Width 16.7 % (12-17); White Blood Count 6.4 10^3/uL (3.8-11.8)
[2023-09-21 09:48] LABS: Calcium 8.1 mg/dL (8.6-10.3); Creatinine, Serum 0.5 mg/dL (0.51-0.95); Magnesium 1.7 mg/dL (1.9-2.7); Potassium 3.6 mmol/L (3.5-5.0); eGFR CKD-EPI 104.7 (>60)
[2023-09-21] MEDS: Morphine 2 MG/ML SYRINGE IV ONE (11:06)
[2023-09-21] MEDS: HYDROmorphone 0.5 MG/0.5 ML SYRINGE IV SLOW PU ONE (11:08)
[2023-09-21] MEDS: cefTRIAXone 2 gm/50 mL D5W 2 GM/50 ML BAG IV SCH (12:47)
[2023-09-21 14:15] LABS: Body Fluid Total Nucleated 57 /mcL
[2023-09-21 14:39] LABS: Body Fluid Appearance Clear; Body Fluid Color Yellow; Body Fluid Source Peritonial Fluid
[2023-09-21 14:58] LABS: Body Fluid Mono 68 %; Body Fluid Other Cells 6; Body Fluid Total Cells Counted 200
[2023-09-21] MEDS: Lactulose 30 ml UDC PO SCH (21:55)
[2023-09-22 06:09] LABS: Albumin 2.3 g/dL (3.2-5.2); Albumin/Globulin Ratio 0.9 (1-3); Calcium 7.6 mg/dL (8.6-10.3); Creatinine, Serum 0.61 mg/dL (0.51-0.95); Globulin 2.5 g/dL (2-4); Magnesium 1.4 mg/dL (1.9-2.7); Potassium 3.6 mmol/L (3.5-5.0); Total Bilirubin 2.9 mg/dL (0.2-1.0); Total Protein 4.8 g/dL (6.4-8.9); eGFR CKD-EPI 99.8 (>60)
[2023-09-22 06:11] LABS: INR 1.78 (0.83-1.13)
[2023-09-22 06:27] LABS: ABS Eosinophils 0.1 10^3/uL (0.0-0.5); ABS Lymphocytes 0.6 10^3/uL (1.0-4.8); ABS Monocytes 0.8 10^3/uL (0.0-0.9); ABS Neutrophils 4.5 10^3/uL (1.5-7.6); ABS Nucleated RBC 0.02 10^3/ul; Eosinophil % 1.8 %; Hematocrit 29.7 % (35-45); Hemoglobin 10.4 g/dL (11.5-14.3); Lymphocyte % 9.9 %; Mean Corpuscular Hemoglobin 40.4 pg (27-33); Mean Corpuscular Hgb Conc 34.9 g/dL (31-36); Mean Corpuscular Volume 115.5 fL (80-97); Mean Platelet Volume 9.1 fL (7.5-11.2); Nucleated Red Blood Cells % 0.3 %/100WBC (0.0-0.8); Platelet Count 88 10^3/uL (150-450); Red Blood Count 2.57 10^6/uL (3.63-4.92); Red Cell Distribution Width 16.9 % (12-17)
[2023-09-22] MEDS: Magnesium Sulfate 2 gm BAG 2 GM/50 ML BAG IVPB ONE (08:42)
[2023-09-22 15:08] LABS: Fluid Type, Amylase PERITONEAL FLUID
[2023-09-22 15:14] LABS: Lactate Dehydrogenase, BF 45 U/L
[2023-09-22] MEDS: Lidocaine PATCH 5% PATCH TRANSDERM SCH (15:42)
[2023-09-23] MEDS: Lidocaine PATCH 5% PATCH TRANSDERM SCH (01:48)
[2023-09-23 09:39] LABS: ABS Eosinophils 0.1 10^3/uL (0.0-0.5); ABS Lymphocytes 0.5 10^3/uL (1.0-4.8); ABS Monocytes 0.8 10^3/uL (0.0-0.9); ABS Neutrophils 4.5 10^3/uL (1.5-7.6); ABS Nucleated RBC 0.01 10^3/ul; Eosinophil % 2.1 %; Hematocrit 31.5 % (35-45); Hemoglobin 10.9 g/dL (11.5-14.3); Lymphocyte % 8.8 %; Mean Corpuscular Hemoglobin 39.6 pg (27-33); Mean Corpuscular Hgb Conc 34.6 g/dL (31-36); Mean Corpuscular Volume 114.5 fL (80-97); Mean Platelet Volume 8.5 fL (7.5-11.2); Nucleated Red Blood Cells % 0.1 %/100WBC (0.0-0.8); Platelet Count 97 10^3/uL (150-450); Red Blood Count 2.75 10^6/uL (3.63-4.92); Red Cell Distribution Width 17.1 % (12-17); White Blood Count 5.9 10^3/uL (3.8-11.8)
[2023-09-23 10:09] LABS: Calcium 7.8 mg/dL (8.6-10.3); Creatinine, Serum 0.58 mg/dL (0.51-0.95); Magnesium 1.4 mg/dL (1.9-2.7); Potassium 3.4 mmol/L (3.5-5.0)
[2023-09-23 10:16] LABS: Albumin, BF 0.6 g/dL; Fluid Type, Albumin PERITONEAL FLUID; Total Protein, BF 0.7 g/dL
[2023-09-23] MEDS: Magnesium Sulfate 2 gm BAG 2 GM/50 ML BAG IVPB ONE (13:53)
[2023-09-23] MEDS: Potassium Chlor 20 meq TAB.ER PO ONE (14:04)
[2023-09-24 12:06] LABS: ABS Eosinophils 0.1 10^3/uL (0.0-0.5); ABS Lymphocytes 0.5 10^3/uL (1.0-4.8); ABS Monocytes 0.9 10^3/uL (0.0-0.9); ABS Neutrophils 5.9 10^3/uL (1.5-7.6); Eosinophil % 1.7 %; Hematocrit 34.3 % (35-45); Hemoglobin 11.7 g/dL (11.5-14.3); Lymphocyte % 6.7 %; Mean Corpuscular Hemoglobin 39.6 pg (27-33); Mean Corpuscular Hgb Conc 34.2 g/dL (31-36); Mean Corpuscular Volume 115.6 fL (80-97); Mean Platelet Volume 8.4 fL (7.5-11.2); Nucleated Red Blood Cells % 0.1 %/100WBC (0.0-0.8); Platelet Count 131 10^3/uL (150-450); Red Blood Count 2.96 10^6/uL (3.63-4.92); Red Cell Distribution Width 17.9 % (12-17); White Blood Count 7.5 10^3/uL (3.8-11.8)
[2023-09-24 12:24] LABS: Calcium 7.7 mg/dL (8.6-10.3); Creatinine, Serum 0.61 mg/dL (0.51-0.95); Magnesium 1.6 mg/dL (1.9-2.7); Potassium 3.4 mmol/L (3.5-5.0); eGFR CKD-EPI 99.8 (>60)
[2023-09-24] MEDS: Potassium Chlor 20 meq TAB.ER PO ONE (16:53)
[2023-09-24] MEDS: Magnesium Sulf 4 GM/100 ML IV 4,000 MG/100 ML BAG IVPB ONE (16:53)
[2023-09-24] MEDS: Enoxaparin 40 MG/0.4 ML SYR SUBCUT SCH (21:29)
[2023-09-25 06:28] LABS: ABS Basophils 0.1 10^3/uL (0.0-0.1); ABS Eosinophils 0.2 10^3/uL (0.0-0.5); ABS Lymphocytes 0.7 10^3/uL (1.0-4.8); ABS Nucleated RBC 0.01 10^3/ul; Hematocrit 33.4 % (35-45); Hemoglobin 11.6 g/dL (11.5-14.3); Lymphocyte % 7.8 %; Mean Corpuscular Hemoglobin 39.7 pg (27-33); Mean Corpuscular Hgb Conc 34.6 g/dL (31-36); Mean Corpuscular Volume 114.7 fL (80-97); Mean Platelet Volume 8.3 fL (7.5-11.2); Nucleated Red Blood Cells % 0.1 %/100WBC (0.0-0.8); Platelet Count 131 10^3/uL (150-450); Red Blood Count 2.91 10^6/uL (3.63-4.92); Red Cell Distribution Width 17.8 % (12-17); White Blood Count 8.9 10^3/uL (3.8-11.8)
[2023-09-25 06:50] LABS: Albumin 2.4 g/dL (3.2-5.2); Albumin/Globulin Ratio 0.8 (1-3); Calcium 7.6 mg/dL (8.6-10.3); Creatinine, Serum 0.56 mg/dL (0.51-0.95); Globulin 2.9 g/dL (2-4); Magnesium 1.9 mg/dL (1.9-2.7); Phosphorus 2.9 mg/dL (2.5-5.0); Potassium 3.7 mmol/L (3.5-5.0); Total Bilirubin 2.6 mg/dL (0.2-1.0); Total Protein 5.3 g/dL (6.4-8.9); eGFR CKD-EPI 101.8 (>60)
[2023-09-25] MEDS ORDERED: Furosemide 40 mg/4 ml IV VIAL IV SCH (09:00)
[2023-09-26] MEDS: Morphine 2 MG/ML SYRINGE IV ONE (03:10)
[2023-09-26 06:10] LABS: ABS Eosinophils 0.1 10^3/uL (0.0-0.5); ABS Lymphocytes 0.7 10^3/uL (1.0-4.8); ABS Monocytes 0.9 10^3/uL (0.0-0.9); ABS Neutrophils 6.5 10^3/uL (1.5-7.6); Eosinophil % 1.5 %; Hematocrit 31.5 % (35-45); Hemoglobin 10.9 g/dL (11.5-14.3); Lymphocyte % 8.2 %; Mean Corpuscular Hemoglobin 39.8 pg (27-33); Mean Corpuscular Hgb Conc 34.4 g/dL (31-36); Mean Corpuscular Volume 115.6 fL (80-97); Mean Platelet Volume 8.1 fL (7.5-11.2); Platelet Count 128 10^3/uL (150-450); Red Blood Count 2.73 10^6/uL (3.63-4.92); Red Cell Distribution Width 17.7 % (12-17); White Blood Count 8.3 10^3/uL (3.8-11.8)
[2023-09-26 06:41] LABS: Albumin 2.4 g/dL (3.2-5.2); Albumin/Globulin Ratio 0.8 (1-3); Calcium 7.6 mg/dL (8.6-10.3); Creatinine, Serum 0.58 mg/dL (0.51-0.95); Globulin 2.9 g/dL (2-4); Magnesium 1.6 mg/dL (1.9-2.7); Potassium 3.7 mmol/L (3.5-5.0); Total Bilirubin 2.6 mg/dL (0.2-1.0); Total Protein 5.3 g/dL (6.4-8.9)
[2023-09-26] MEDS: Magnesium Sulfate 2 gm BAG 2 GM/50 ML BAG IVPB ONE (10:23)
[2023-09-26] MEDS: Furosemide 40 mg/4 ml IV VIAL IV SLOW PU ONE (12:55)
[2023-09-27 10:28] LABS: Calcium 7.8 mg/dL (8.6-10.3); Creatinine, Serum 0.61 mg/dL (0.51-0.95); Potassium 3.3 mmol/L (3.5-5.0); eGFR CKD-EPI 99.8 (>60)
[2023-09-27] MEDS: fentaNYL 100 mcg/2 ml 50 MCG/ML VIAL ONE (16:44)
[2023-09-27] MEDS: Potassium Chlor 20 meq TAB.ER PO ONE (18:05)
[2023-09-28 06:13] LABS: Albumin 2.2 g/dL (3.2-5.2); Albumin/Globulin Ratio 0.8 (1-3); Calcium 7.6 mg/dL (8.6-10.3); Creatinine, Serum 0.62 mg/dL (0.51-0.95); Globulin 2.9 g/dL (2-4); Magnesium 1.5 mg/dL (1.9-2.7); Potassium 4.1 mmol/L (3.5-5.0); Total Bilirubin 2.3 mg/dL (0.2-1.0); Total Protein 5.1 g/dL (6.4-8.9); eGFR CKD-EPI 99.4 (>60)
[2023-09-28 06:33] LABS: INR 1.58 (0.83-1.13)
[2023-09-28 06:44] LABS: Hematocrit 32.9 % (35-45); Hemoglobin 10.7 g/dL (11.5-14.3); Mean Corpuscular Hgb Conc 32.5 g/dL (31-36); Mean Platelet Volume 8.4 fL (7.5-11.2); Platelet Count 126 10^3/uL (150-450); Red Blood Count 2.68 10^6/uL (3.63-4.92); Red Cell Distribution Width 18.1 % (12-17)
[2023-09-28 10:28] LABS: Body Fluid Appearance Cloudy; Body Fluid Source Peritonial Fluid
[2023-09-28 10:29] LABS: Body Fluid Color Yellow
[2023-09-28 10:57] LABS: Body Fluid Total Nucleated 35 /mcL
[2023-09-28 12:18] LABS: Body Fluid Mono 84 %; Body Fluid Other Cells 19; Body Fluid Total Cells Counted 200
[2023-09-29] MEDS: HYDROmorphone 0.5 MG/0.5 ML SYRINGE IV SLOW PU ONE (00:22)
[2023-09-29 10:45] VITALS: BP 148/76
== END 2023-09-29 10:17 | disposition home or self-care (01) | DRG 248 ==
LOC: ED 09:17 → EDHOLD 16:09 → SUATTDRO 16:09 → MEDTELE 09-19 14:42
PROVIDERS: ADMIT Internal Medicine; ATTEND Student in an Organized Health Care Education/Training Program

== ENCOUNTER 2023-10-20 14:23 | Inpatient (IN) ==
[2023-10-20] MEDS ORDERED: Rocuronium 50 mg VIAL 10 mg/ml 5 ml VIAL (50 mg) ONE (14:33)
[2023-10-20] MEDS ORDERED: Etomidate 40 mg/20 ml (2 MG/ML) 20 ml VIAL (40 mg) ONE (14:33)
[2023-10-20] MEDS ORDERED: Propofol 10 mg/ml 100 ML BTL 1,000 MG/100 ML BTL ONE (14:35)
[2023-10-20] MEDS: Propofol 10 mg/ml 100 ML BTL 1,000 MG/100 ML BTL IV SCH ×2 (14:40→16:12)
[2023-10-20] MEDS: NS 0.9% 1000 ml BAG 1,000 ML IV ONE (15:03)
[2023-10-20] MEDS: levETIRAcetam 1000MG IVPREMIX 1,000 MG/100 ML BAG IVPB ONE (15:09)
[2023-10-20 15:14] LABS: Resp Rate 16
[2023-10-20 15:16] LABS: PCO2 Arterial 39 mmHg (35-45); PO2 Arterial 333 mmHg (80-100)
[2023-10-20 15:22] LABS: ABS Basophils 0.1 10^3/uL (0.0-0.1); ABS Eosinophils 0.2 10^3/uL (0.0-0.5); ABS Lymphocytes 0.9 10^3/uL (1.0-4.8); ABS Monocytes 0.5 10^3/uL (0.0-0.9); ABS Neutrophils 10.5 10^3/uL (1.5-7.6); ABS Nucleated RBC 0.03 10^3/ul; Eosinophil % 1.4 %; Hematocrit 38.9 % (35-45); Hemoglobin 12.9 g/dL (11.5-14.3); Lymphocyte % 7.6 %; Mean Corpuscular Hemoglobin 37.5 pg (27-33); Mean Corpuscular Hgb Conc 33.1 g/dL (31-36); Mean Corpuscular Volume 113.3 fL (80-97); Mean Platelet Volume 8.3 fL (7.5-11.2); Nucleated Red Blood Cells % 0.2 %/100WBC (0.0-0.8); Platelet Count 245 10^3/uL (150-450); Red Blood Count 3.44 10^6/uL (3.63-4.92); White Blood Count 12.2 10^3/uL (3.8-11.8)
[2023-10-20 15:27] LABS: ALT 16 U/L (7-52); Acetaminophen < 15 mcg/mL; Albumin 2.9 g/dL (3.2-5.2); Albumin/Globulin Ratio 0.8 (1-3); Alcohol, S < 13 mg/dL (<13); Alkaline Phosphatase 103 U/L (35-149); Blood Urea Nitrogen 10 mg/dL (6-24); CO2 Carbon Dioxide 20 mmol/L (22-32); Chloride 98 mmol/L (101-111); Creatine Kinase 47 U/L (10-223); Creatinine, Serum 0.67 mg/dL (0.51-0.95); Globulin 3.7 g/dL (2-4); Glucose 148 mg/dL (70-100); Salicylate < 2.50 mg/dL (<30); Sodium 137 mmol/L (135-145); Total Bilirubin 2.3 mg/dL (0.2-1.0); Total Protein 6.6 g/dL (6.4-8.9); eGFR CKD-EPI 97.5 (>60)
[2023-10-20 15:28] LABS: Anion Gap 19 mmol/L (2-16)
[2023-10-20 15:42] LABS: Urine Appearance Clear; Urine Bilirubin Negative (Negative); Urine Blood Negative (Negative); Urine Color Yellow; Urine Glucose Negative (Negative); Urine Ketones 1+ (Negative); Urine Nitrite Negative (Negative); Urine Protein 1+ (>=30 mg/dL) (Negative); Urine Specific Gravity 1.017 (1.002-1.030); Urine Urobilinogen Negative (Negative); Urine pH 5.5 (5.0-8.0)
[2023-10-20 15:44] LABS: Urine Bacteria Absent /HPF (Absent); Urine Red Blood Cell Trace(0-2/hpf) /HPF (0-Trace); Urine Squamous Epithelial Cell Present /HPF (Absent); Urine White Blood Cell Trace(0-5/hpf) /HPF (0-Trace)
[2023-10-20] MEDS: Cefepime 2 GM in Dextrose 2 GM/50 ML BAG IV ONE (15:49)
[2023-10-20] MEDS: Lactated Ringers SEPSIS* BAG 1,500 ML IV ONE (15:50)
[2023-10-20] MEDS: metroNIDAZOLE IV 500 MG/100ML 500 MG/100 ML BAG IVPB ONE (16:10)
[2023-10-20 16:49] LABS: Magnesium 1.5 mg/dL (1.9-2.7)
[2023-10-20 16:50] LABS: High Sensitivity Troponin 1 Hr 68 pg/mL (<15)
[2023-10-20] MEDS: Vancomycin 750 MG in NS 0.9% 250 ml 250 ML IVPB ONE (17:36)
[2023-10-20] MEDS: levETIRAcetam 1000MG IVPREMIX 1,000 MG/100 ML BAG IVPB SCH (17:37)
[2023-10-20 17:54] LABS: Potassium Redraw 3.1 mmol/L (3.5-5.0)
[2023-10-20 19:19] LABS: Magnesium 1.2 mg/dL (1.9-2.7)
[2023-10-20] MEDS: Pantoprazole VIAL 40 MG VIAL IV SCH (19:50)
[2023-10-20] MEDS: KCL 20 MEQ/100 ML IVPREMIX 20 MEQ/100 ML BAG IV SCH (19:51)
[2023-10-20] MEDS: Magnesium Sulfate 2 gm BAG 2 GM/50 ML BAG IVPB ONE (20:07)
[2023-10-20] MEDS ORDERED: Heparin 5000 UNITS/ML 1 mL VIAL SUBCUT SCH (21:00)
[2023-10-20] MEDS: Magnesium Sulfate IV 1GM/100ML 1 GM/100 ML BAG IV ONE (21:18)
[2023-10-20] MEDS: Lactulose 300 ML for PR 200 GM/300 ML BTL PR SCH (21:23)
[2023-10-20] MEDS: cefTRIAXone 2 gm/50 mL D5W 2 GM/50 ML BAG IV SCH (23:19)
[2023-10-21] MEDS: Lactated Ringers 1000 ml BAG 1,000 ML IV ONE (01:54)
[2023-10-21] MEDS ORDERED: ALBUMIN HUMAN 25% IV ONE (02:42)
[2023-10-21] MEDS ORDERED: Albumin Human 25% 25 GM/100 ML IV SCH (03:00)
[2023-10-21] MEDS: Albumin Human 25% 25 GM/100 ML IV SCH (03:01)
[2023-10-21 03:59] LABS: INR 1.81 (0.83-1.13)
[2023-10-21] MEDS: Albumin Human 25% 0 GM/0 ML BTL IV ONE (04:10)
[2023-10-21 04:37] LABS: ABS Eosinophils 0.1 10^3/uL (0.0-0.5); ABS Lymphocytes 1.6 10^3/uL (1.0-4.8); ABS Neutrophils 6.5 10^3/uL (1.5-7.6); ABS Nucleated RBC 0.01 10^3/ul; Hematocrit 28.5 % (35-45); Hemoglobin 9.9 g/dL (11.5-14.3); Lymphocyte % 17.3 %; Mean Corpuscular Hemoglobin 37.7 pg (27-33); Mean Corpuscular Hgb Conc 34.6 g/dL (31-36); Mean Platelet Volume 8.2 fL (7.5-11.2); Nucleated Red Blood Cells % 0.1 %/100WBC (0.0-0.8); Platelet Count 125 10^3/uL (150-450); Red Blood Count 2.62 10^6/uL (3.63-4.92); Red Cell Distribution Width 14.2 % (12-17); White Blood Count 9.3 10^3/uL (3.8-11.8)
[2023-10-21 04:50] LABS: Albumin 2.4 g/dL (3.2-5.2); Albumin/Globulin Ratio 0.9 (1-3); Calcium 7.7 mg/dL (8.6-10.3); Creatinine, Serum 0.43 mg/dL (0.51-0.95); Globulin 2.7 g/dL (2-4); Magnesium 1.9 mg/dL (1.9-2.7); Potassium 3.7 mmol/L (3.5-5.0); Total Bilirubin 1.4 mg/dL (0.2-1.0); Total Protein 5.1 g/dL (6.4-8.9); eGFR CKD-EPI 108.5 (>60)
[2023-10-21 05:41] LABS: Hematocrit 25.1 % (35-45); Hemoglobin 8.7 g/dL (11.5-14.3)
[2023-10-21] MEDS: Iodixanol (CONTRAST) 320 MG/ML 100 ML SDV IV ONE (06:47)
[2023-10-21] MEDS: Magnesium Sulfate IV 1GM/100ML 1 GM/100 ML BAG IV ONE (11:50)
[2023-10-22 05:20] LABS: ABS Eosinophils 0.1 10^3/uL (0.0-0.5); ABS Lymphocytes 1.1 10^3/uL (1.0-4.8); ABS Monocytes 0.8 10^3/uL (0.0-0.9); ABS Nucleated RBC 0.01 10^3/ul; Eosinophil % 1.2 %; Hematocrit 33.6 % (35-45); Hemoglobin 11.5 g/dL (11.5-14.3); Mean Corpuscular Hemoglobin 36.4 pg (27-33); Mean Corpuscular Hgb Conc 34.3 g/dL (31-36); Mean Corpuscular Volume 106.1 fL (80-97); Mean Platelet Volume 8.1 fL (7.5-11.2); Nucleated Red Blood Cells % 0.2 %/100WBC (0.0-0.8); Platelet Count 120 10^3/uL (150-450); Red Blood Count 3.17 10^6/uL (3.63-4.92); Red Cell Distribution Width 17.6 % (12-17)
[2023-10-22 05:37] LABS: Calcium 8.6 mg/dL (8.6-10.3); Creatinine, Serum 0.42 mg/dL (0.51-0.95); Magnesium 1.6 mg/dL (1.9-2.7); Phosphorus 2.7 mg/dL (2.5-5.0); Potassium 3.2 mmol/L (3.5-5.0); eGFR CKD-EPI 109.2 (>60)
[2023-10-22] MEDS: KCL 20 MEQ/100 ML IVPREMIX 20 MEQ/100 ML BAG IV SCH (11:44)
[2023-10-22] MEDS: Magnesium Sulfate 2 gm BAG 2 GM/50 ML BAG IVPB ONE ×2 (13:53→22:23)
[2023-10-22] MEDS ORDERED: KCL 20 MEQ/100 ML IVPREMIX 20 MEQ/100 ML BAG IV SCH (14:00)
[2023-10-22 14:42] LABS: Folate 18.29 ng/mL (5.90-24.80)
[2023-10-22 16:55] LABS: Activated Partial Thrombo Time 33.7 seconds (26.0-38.0); INR 1.95 (0.83-1.13)
[2023-10-22 16:57] LABS: ABS Eosinophils 0.2 10^3/uL (0.0-0.5); ABS Lymphocytes 1.2 10^3/uL (1.0-4.8); ABS Monocytes 0.7 10^3/uL (0.0-0.9); ABS Neutrophils 4.2 10^3/uL (1.5-7.6); ABS Nucleated RBC 0.02 10^3/ul; Eosinophil % 3.1 %; Hematocrit 35.9 % (35-45); Hemoglobin 12.3 g/dL (11.5-14.3); Lymphocyte % 18.7 %; Mean Corpuscular Hemoglobin 36.5 pg (27-33); Mean Corpuscular Hgb Conc 34.2 g/dL (31-36); Mean Corpuscular Volume 106.7 fL (80-97); Mean Platelet Volume 8.1 fL (7.5-11.2); Nucleated Red Blood Cells % 0.3 %/100WBC (0.0-0.8); Platelet Count 118 10^3/uL (150-450); Red Blood Count 3.36 10^6/uL (3.63-4.92); Red Cell Distribution Width 17.2 % (12-17); White Blood Count 6.3 10^3/uL (3.8-11.8)
[2023-10-22 17:17] LABS: Creatinine, Serum 0.34 mg/dL (0.51-0.95); eGFR CKD-EPI 114.9 (>60)
[2023-10-22] MEDS: Heparin 5000 UNITS/ML 1 mL VIAL SUBCUT SCH (22:25)
[2023-10-23 03:08] LABS: ABS Lymphocytes 0.8 10^3/uL (1.0-4.8); ABS Monocytes 0.6 10^3/uL (0.0-0.9); ABS Neutrophils 6.1 10^3/uL (1.5-7.6); ABS Nucleated RBC 0.01 10^3/ul; Eosinophil % 0.4 %; Hematocrit 38.2 % (35-45); Lymphocyte % 10.2 %; Mean Corpuscular Hemoglobin 36.2 pg (27-33); Mean Corpuscular Hgb Conc 34.2 g/dL (31-36); Mean Platelet Volume 7.4 fL (7.5-11.2); Nucleated Red Blood Cells % 0.1 %/100WBC (0.0-0.8); Platelet Count 139 10^3/uL (150-450); Red Cell Distribution Width 17.5 % (12-17); White Blood Count 7.5 10^3/uL (3.8-11.8)
[2023-10-23 03:50] LABS: Albumin 3.3 g/dL (3.2-5.2); Albumin/Globulin Ratio 1.1 (1-3); Calcium 9.1 mg/dL (8.6-10.3); Creatinine, Serum 0.41 mg/dL (0.51-0.95); Magnesium 2.2 mg/dL (1.9-2.7); Potassium 3.9 mmol/L (3.5-5.0); Total Protein 6.3 g/dL (6.4-8.9); eGFR CKD-EPI 109.8 (>60)
[2023-10-23 04:10] LABS: Prolactin 11.2 ng/mL (1.0-25.0)
[2023-10-23] MEDS: Thiamine 100 MG/ML 2 ml VIAL 500 MG in NS 0.9% 250 ml 250 ML IV ONE (18:03)
[2023-10-24 07:37] LABS: ABS Monocytes 0.8 10^3/uL (0.0-0.9); ABS Neutrophils 6.7 10^3/uL (1.5-7.6); ABS Nucleated RBC 0.01 10^3/ul; Eosinophil % 0.4 %; Hematocrit 35.6 % (35-45); Hemoglobin 12.2 g/dL (11.5-14.3); Lymphocyte % 11.7 %; Mean Corpuscular Hemoglobin 36.6 pg (27-33); Mean Corpuscular Hgb Conc 34.4 g/dL (31-36); Mean Corpuscular Volume 106.5 fL (80-97); Mean Platelet Volume 7.9 fL (7.5-11.2); Nucleated Red Blood Cells % 0.1 %/100WBC (0.0-0.8); Platelet Count 164 10^3/uL (150-450); Red Blood Count 3.34 10^6/uL (3.63-4.92); Red Cell Distribution Width 16.9 % (12-17); White Blood Count 8.5 10^3/uL (3.8-11.8)
[2023-10-24 08:04] LABS: Albumin 3.2 g/dL (3.2-5.2); Albumin/Globulin Ratio 1.1 (1-3); Calcium 9.4 mg/dL (8.6-10.3); Creatinine, Serum 0.49 mg/dL (0.51-0.95); Magnesium 1.5 mg/dL (1.9-2.7); Potassium 3.8 mmol/L (3.5-5.0); Total Bilirubin 1.8 mg/dL (0.2-1.0); Total Protein 6.2 g/dL (6.4-8.9); eGFR CKD-EPI 105.2 (>60)
[2023-10-24] MEDS ORDERED: Lorazepam PYXIS KEY PRN (08:26)
[2023-10-24] MEDS ORDERED: LORazepam 2 mg VIAL 1 ml IV PUSH ONE (08:26)
[2023-10-24] MEDS: diazePAM INJ CARPUJECT 5 MG/ML SYRINGE IV PRN (08:31)
[2023-10-24] MEDS: diazePAM INJ CARPUJECT 5 MG/ML SYRINGE ONE (08:34)
[2023-10-24] MEDS: levETIRAcetam 1000MG IVPREMIX 1,000 MG/100 ML BAG IVPB ONE (08:54)
[2023-10-24] MEDS: Magnesium Sulf 4 GM/100 ML IV 4,000 MG/100 ML BAG IVPB ONE (15:36)
[2023-10-24] MEDS: Valproic Acid IV 1,000 MG in NS 0.9% 100 ml BAG 100 ML IVPB ONE ×2 (18:15→19:02)
[2023-10-25] MEDS: LORazepam 2 MG/ML 1 mL Syringe IV ONE (01:29)
[2023-10-25] MEDS: diazePAM INJ CARPUJECT 5 MG/ML SYRINGE IV PRN ×2 (05:57→18:03)
[2023-10-25 06:15] LABS: ABS Eosinophils 0.1 10^3/uL (0.0-0.5); ABS Lymphocytes 0.9 10^3/uL (1.0-4.8); ABS Monocytes 0.5 10^3/uL (0.0-0.9); ABS Neutrophils 3.7 10^3/uL (1.5-7.6); Eosinophil % 2.4 %; Hematocrit 36.8 % (35-45); Hemoglobin 12.5 g/dL (11.5-14.3); Lymphocyte % 17.5 %; Mean Corpuscular Hemoglobin 35.9 pg (27-33); Mean Corpuscular Hgb Conc 33.8 g/dL (31-36); Mean Corpuscular Volume 106.1 fL (80-97); Mean Platelet Volume 7.4 fL (7.5-11.2); Nucleated Red Blood Cells % 0.1 %/100WBC (0.0-0.8); Platelet Count 120 10^3/uL (150-450); Red Blood Count 3.47 10^6/uL (3.63-4.92); Red Cell Distribution Width 16.7 % (12-17); White Blood Count 5.4 10^3/uL (3.8-11.8)
[2023-10-25 07:15] LABS: Urine Appearance Clear; Urine Bilirubin Negative (Negative); Urine Blood Trace (Negative); Urine Color Yellow; Urine Glucose Negative (Negative); Urine Ketones 1+ (Negative); Urine Nitrite Negative (Negative); Urine Protein Trace (Negative); Urine Specific Gravity 1.023 (1.002-1.030); Urine Urobilinogen Negative (Negative); Urine pH 5.5 (5.0-8.0)
[2023-10-25] MEDS ORDERED: Valproic Acid IV 100 MG/ML 5 ML VIAL (500 MG) IVPB SCH (09:00)
[2023-10-25] MEDS: Valproic Acid IV 500 MG in NS 0.9% 100 ML IVPB SCH (10:10)
[2023-10-25 11:03] LABS: Calcium 9.3 mg/dL (8.6-10.3); Creatinine, Serum 0.41 mg/dL (0.51-0.95); Globulin 2.9 g/dL (2-4); Magnesium 1.8 mg/dL (1.9-2.7); Potassium 3.5 mmol/L (3.5-5.0); Total Bilirubin 1.5 mg/dL (0.2-1.0); Total Protein 5.9 g/dL (6.4-8.9); eGFR CKD-EPI 109.8 (>60)
[2023-10-25] MEDS: Valproic Acid IV 500 MG in NS 0.9% 100 ml BAG 100 ML IVPB SCH (14:22)
[2023-10-26 06:26] LABS: ABS Eosinophils 0.2 10^3/uL (0.0-0.5); ABS Lymphocytes 0.9 10^3/uL (1.0-4.8); ABS Monocytes 0.4 10^3/uL (0.0-0.9); ABS Neutrophils 2.4 10^3/uL (1.5-7.6); ABS Nucleated RBC 0.01 10^3/ul; Eosinophil % 5.9 %; Hematocrit 35.6 % (35-45); Hemoglobin 12.2 g/dL (11.5-14.3); Lymphocyte % 23.7 %; Mean Corpuscular Hemoglobin 36.4 pg (27-33); Mean Corpuscular Hgb Conc 34.3 g/dL (31-36); Mean Corpuscular Volume 106.1 fL (80-97); Mean Platelet Volume 7.3 fL (7.5-11.2); Nucleated Red Blood Cells % 0.2 %/100WBC (0.0-0.8); Platelet Count 108 10^3/uL (150-450); Red Blood Count 3.36 10^6/uL (3.63-4.92); Red Cell Distribution Width 16.3 % (12-17)
[2023-10-26 06:38] LABS: Albumin 2.8 g/dL (3.2-5.2); Calcium 9.1 mg/dL (8.6-10.3); Creatinine, Serum 0.36 mg/dL (0.51-0.95); Globulin 2.7 g/dL (2-4); Magnesium 1.5 mg/dL (1.9-2.7); Potassium 3.3 mmol/L (3.5-5.0); Total Bilirubin 1.5 mg/dL (0.2-1.0); Total Protein 5.5 g/dL (6.4-8.9); eGFR CKD-EPI 113.3 (>60)
[2023-10-26] MEDS: Lactated Ringers 1000 ml BAG 1,000 ML IV ONE (13:33)
[2023-10-26] MEDS: Magnesium Sulfate 2 gm BAG 2 GM/50 ML BAG IVPB ONE (13:34)
[2023-10-26] MEDS: KCL 20 MEQ/100 ML IVPREMIX 20 MEQ/100 ML BAG IV SCH (16:00)
[2023-10-26] MEDS: KCL 10 MEQ/50 ML IVPREMIX 10 MEQ/50 ML BAG IV SCH (16:08)
[2023-10-27 08:39] LABS: ABS Eosinophils 0.2 10^3/uL (0.0-0.5); ABS Lymphocytes 0.8 10^3/uL (1.0-4.8); ABS Monocytes 0.3 10^3/uL (0.0-0.9); ABS Neutrophils 2.3 10^3/uL (1.5-7.6); ABS Nucleated RBC 0.01 10^3/ul; Eosinophil % 5.8 %; Hematocrit 38.1 % (35-45); Hemoglobin 12.8 g/dL (11.5-14.3); Lymphocyte % 23.3 %; Mean Corpuscular Hemoglobin 35.9 pg (27-33); Mean Corpuscular Hgb Conc 33.5 g/dL (31-36); Mean Corpuscular Volume 107.3 fL (80-97); Mean Platelet Volume 7.6 fL (7.5-11.2); Nucleated Red Blood Cells % 0.1 %/100WBC (0.0-0.8); Platelet Count 113 10^3/uL (150-450); Red Blood Count 3.55 10^6/uL (3.63-4.92); Red Cell Distribution Width 16.6 % (12-17); White Blood Count 3.6 10^3/uL (3.8-11.8)
[2023-10-27 09:18] LABS: Albumin 2.8 g/dL (3.2-5.2); Albumin/Globulin Ratio 0.9 (1-3); Creatinine, Serum 0.4 mg/dL (0.51-0.95); Magnesium 1.7 mg/dL (1.9-2.7); Total Bilirubin 1.5 mg/dL (0.2-1.0); Total Protein 5.8 g/dL (6.4-8.9); eGFR CKD-EPI 110.5 (>60)
[2023-10-27] MEDS ORDERED: Ondansetron ODT 4 mg TAB 4 MG TAB SL PRN (17:28)
[2023-10-27] MEDS ORDERED: Morphine ORAL CONCENTRATE 5 MG/0.25 ML ORAL.SYRIN PO PRN (17:28)
[2023-10-27] MEDS: Al Hydrox/Mg Hydrox/Simet LIQ 30 ML UDC PO ONE (21:26)
[2023-10-30 23:41] VITALS: BP 123/70
== END 2023-10-31 11:20 | disposition hospice, inpatient (51) | DRG 53 ==
LOC: ED 14:23 → SUATTDRO 16:54 → EDHOLD 16:54 → ICU 17:06 → MEDTELE 10-22 18:22 → MED 10-29 19:49
PROVIDERS: ADMIT Internal Medicine Critical Care Medicine; ATTEND Internal Medicine

== ENCOUNTER 2023-10-31 11:48 | Inpatient (IN) ==
[2023-10-31] MEDS ORDERED: diazePAM INJ CARPUJECT 5 MG/ML SYRINGE IV PRN (11:52)
[2023-10-31] MEDS ORDERED: Ondansetron ODT 4 mg TAB 4 MG TAB SL PRN (11:55)
[2023-10-31 13:14] VITALS: BP 110/74
[2023-10-31] MEDS: Valproic Acid IV 500 MG in NS 0.9% 100 ml BAG 100 ML IVPB SCH (17:20)
[2023-10-31] MEDS: levETIRAcetam 1000MG IVPREMIX 1,000 MG/100 ML BAG IVPB SCH (18:18)
[2023-11-02] MEDS ORDERED: Morphine ORAL CONCENTRATE 5 MG/0.25 ML ORAL.SYRIN SL PRN (09:23)
[2023-11-02] MEDS ORDERED: Polyethylene Glycol 3350 17 GM PACKET PO PRN (09:26)
[2023-11-09 00:50] LABS: Rapid COVID-19 Molecular Undetected (Undetected)
== END 2023-11-09 10:05 | disposition hospice, inpatient (51) | DRG 53 ==
LOC: SUATTDRO 11:52 → MED 11:52
PROVIDERS: ADMIT Internal Medicine; ATTEND Internal Medicine